=== PATIENT | female | born 1985 | race African-American/Black ===

== ENCOUNTER 2017-04-03 19:01 | Emergency (ER) | payer OTHER ==
[~2017-04-03] VITALS: Ht 160 cm; Wt 81.6 kg
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
[~2017-04-03 19:01] MED LIST: NAPROSYN500 MG PO; PENICILLIN V P500 MG PO
[2017-04-03] MEDS ORDERED: WELLBUTRIN SR150 M1 PO (19:13)
[2017-04-03] MEDS ORDERED: KLONOPIN1 MG PO (19:13)
== END 2017-04-03 21:37 | disposition home or self-care (01) ==
LOC: SED 19:01
DX: S29.011A Strain of muscle and tendon of front wall of thorax, initial encounter (principal); M25.511 Pain in right shoulder; F41.9 Anxiety disorder, unspecified; Z79.899 Other long term (current) drug therapy; V49.40XA Driver injured in collision with unspecified motor vehicles in traffic accident, initial encounter
CPT/HCPCS: 71101; 73030; 99283; J1885; J2360